=== PATIENT | male | born 1995 | race African-American/Black ===

== ENCOUNTER 2018-07-29 14:55 | Emergency (ER) | payer OTHER ==
[2018-07-29 15:08] VITALS: TEMP 98.2
[2018-07-29] MEDS ORDERED: BUPIVACAINE (PF) 0.75% 10 ML VIAL SQ STA (15:14)
[2018-07-29] MEDS ORDERED: KETOROLAC 60 MG/2 ML VIAL IM STA ×2 (15:15→15:49)
--- NOTE | 2018-07-29 15:17 | ED ---
ENT HPI - General Chief complaint: Dental/Oral Stated complaint: Tooth pain Time Seen by Provider: 07/29/18 15:11 Source: patient, RN notes reviewed Mode of arrival: ambulatory Limitations: no limitations - History of Present Illness Initial comments: 21-year-old male presents emergency Department chief complaint of right lower jaw pain. Patient states has been on off for last week states as worsened last 24 hours. Patient states he is scheduled see a dentist tomorrow secondary to cramping of his teeth from his wisdom teeth. Patient denies any known fever states he's felt hot and cold. Patient states pain got so bad that he vomited. Denies any neck pain or neck stiffness. Patient has an no relief with [id number] medications. - Related Data Allergies Allergy/AdvReac Type Severity Reaction Status Date / Time No Known Allergies Allergy Verified 07/29/18 15:06 Review of Systems ROS Statement: Those systems with pertinent positive or pertinent negative responses have been documented in the HPI. ROS Other: All systems not noted in ROS Statement are negative. Past Medical History Past Medical History: No Reported History History of Any Multi-Drug Resistant Organisms: None Reported Past Surgical History: No Surgical Hx Reported Past Psychological History: No Psychological Hx Reported Smoking Status: Never smoker Past Alcohol Use History: Rare Past Drug Use History: Marijuana General Exam Limitations: no limitations General appearance: alert, in no apparent distress Head exam: Present: atraumatic, normocephalic, normal inspection Eye exam: Present: normal appearance, PERRL, EOMI. Absent: scleral icterus, conjunctival injection, periorbital swelling ENT exam: Present: mucous membranes moist. Absent: normal exam (Dental crowding, impacted molar right lower), normal oropharynx Neck exam: Present: normal inspection. Absent: tenderness, meningismus, lymphadenopathy Respiratory exam: Present: normal lung sounds bilaterally. Absent: respiratory distress, wheezes, rales, rhonchi, stridor Cardiovascular Exam: Present: regular rate, normal rhythm, normal heart sounds. Absent: systolic murmur, diastolic murmur, rubs, gallop, clicks Neurological exam: Present: alert, oriented X3, CN II-XII intact Skin exam: Present: warm, dry, intact, normal color. Absent: rash Course Vital Signs 07/29/18 15:06 Temperature 98.2 F Pulse Rate 77 Respiratory 18 Rate Blood Pressure 110/77 O2 Sat by Pulse 99 Oximetry Procedures - Nerve Block Consent Obtained: verbal consent Local Anesthetic Used: Marcaine 0.5% Amount of anesthesia used: 2 Side: right Intraoral Nerve Block: inferior alveolar Procedure Successful: Yes Complications: none Patient Tolerated Procedure: well, no complications Medical Decision Making - Medical Decision Making 22-year-old male presents emergency Department for dental pain. This pain is related to impacted molar. Patient has a follow-up tomorrow with the dentist. Patient was given inferior alveolar block which has helped. Patient will be discharged without codeine return parameters were discussed. Disposition Clinical Impression: Impacted molar, Toothache Disposition: HOME SELF-CARE Condition: Stable Instructions (If sedation given, give patient instructions): Toothache (ED) Additional Instructions: Please return to the Emergency Department if symptoms worsen or any other concerns. Is patient prescribed a controlled substance at d/c from ED?: No Referrals: None,Stated [Primary Care Provider] - 1-2 days
[2018-07-29] MEDS ORDERED: ACET/COD 300 MG/30 MG STARTER PACK 6 TAB BTL PO STA (16:06)
[2018-07-29 16:58] VITALS: BP 110/76; PULSE 68; RESP 19
== END 2018-07-29 16:10 | disposition home or self-care (01) ==
LOC: EC 14:55
DX: K01.1 Impacted teeth (principal); K08.89 Other specified disorders of teeth and supporting structures
CPT/HCPCS: 99282; 64400; 96372; J1885

== ENCOUNTER 2019-06-04 21:56 | Emergency (ER) | payer OTHER ==
[2019-06-04 22:07] VITALS: BP 128/72; PULSE 73; RESP 16; TEMP 99.1
[2019-06-04] MEDS ORDERED: KETOROLAC 60 MG/2 ML VIAL IM STA (22:15)
[2019-06-04] MEDS ORDERED: DIPH,PERTUS(ACELL)TETVAC-LF 0.5 ML VIAL IM ONE (22:15)
[2019-06-04] MEDS ORDERED: LIDOCAINE 1% INJ 10MG/ML (20 ML MDV) SQ STA (22:16)
--- NOTE | 2019-06-04 22:37 | XR ---
EXAMINATION TYPE: XR hand complete RT DATE OF EXAM: 06/04/2019 COMPARISON: NONE HISTORY: Pain TECHNIQUE: 3 views FINDINGS: There is deformity of the metacarpals with posterior dislocations of the fourth and fifth c arpometacarpal joints. There is no fracture seen. Phalanges appear intact. The radiocarpal joint appe ars intact. IMPRESSION: Posterior dislocations at the fourth and fifth carpometacarpal joints.
--- NOTE | 2019-06-04 23:12 | XR ---
EXAMINATION TYPE: XR hand complete RT DATE OF EXAM: 06/04/2019 COMPARISON: Today HISTORY: Post reduction TECHNIQUE: 3 views FINDINGS: There is anatomic reduction of the carpometacarpal joints. I see no fracture. There is a ca st. Carpal bones are intact. IMPRESSION: Anatomic reduction of the carpometacarpal joints. No fracture seen.
--- NOTE | 2019-06-04 23:27 | ED ---
General Adult HPI - General Chief complaint: Extremity Injury, Upper Stated complaint: Hand injury Time Seen by Provider: 06/04/19 22:09 Source: patient, RN notes reviewed, old records reviewed Mode of arrival: ambulatory Limitations: no limitations - History of Present Illness Initial comments: 23-year-old male patient presents emergency department with right hand injury. Patient reports he was upset and punched a steel door. Complains of pain and swelling in the fourth and fifth metacarpal area of right hand. Denies any other complaints. Denies any other injury. Systemic: Pt denies fatigue, fever/chills, rash. Pt denies weakness, night sweats, weight loss. Neuro: Pt denies headache, visual disturbances, syncope or pre-syncope. HEENT: Pt denies ocular discharge or irritation, otalgia, rhinorrhea, pharyngitis or notable lymphadenopathy. Cardiopulmonary: Pt denies chest pain, SOB, heart palpitations, dyspnea on exertion. Abdominal/GI: Pt denies abdominal pain, n/v/d. : Pt denies dysuria, burning w/ urination, frequency/urgency. Denies new onset urinary or bowel incontinence. MSK: Pt denies myalgia, loss of strength or function in extremities. Neuro: Pt denies new onset weakness, paresthesias. - Related Data Allergies Allergy/AdvReac Type Severity Reaction Status Date / Time No Known Allergies Allergy Verified 06/04/19 22:05 Review of Systems ROS Statement: Those systems with pertinent positive or pertinent negative responses have been documented in the HPI. ROS Other: All systems not noted in ROS Statement are negative. Past Medical History Past Medical History: No Reported History History of Any Multi-Drug Resistant Organisms: None Reported Past Surgical History: No Surgical Hx Reported Past Psychological History: No Psychological Hx Reported Smoking Status: Never smoker Past Alcohol Use History: Rare Past Drug Use History: Marijuana General Exam - General Exam Comments Initial Comments: Constitutional: NAD, AOX3, Pt has pleasant affect. HEENT: NC/AT, trachea midline, neck supple, no lymphadenopathy. Posterior pharynx non erythematous, without exudates. External ears appear normal, without discharge. Mucous membranes moist. Eyes PERRLA, EOM intact. There is no scleral icterus. No pallor noted. Cardiopulmonary: RRR, no murmurs, rubs or gallops, no JVD noted. Lungs CTAB in anterior and posterior sarkar. No peripheral edema. Abdominal exam: Abdomen soft and non-distended. Abdomen non-tender to palpation in all 4 quadrants. Bowel sounds active in LLQ. No hepatosplenomegaly. No ecchymosis Neuro: CN II-XII grossly intact. No nuchal rigidity. No raccon eyes, no franz sign, no hemotympanum. No cervical spinal tenderness. MSK: Swelling and deformity consistent with dislocation of fourth and fifth m etacarpals. Reduction was performed. Full active range of motion hand. Neurovascularly intact. Patient placed in ulnar gutter splint. Neurovascularly intact after splint placement. Small abrasion noted on base of fifth metacarpal. Irrigated, approximated with Steri-Strip. Superficial. No posterior calf tenderness bilaterally, homans sign negative bilaterally. Posterior tibialis and radial pulse +2 bilaterally. Sensation intact in upper and lower extremities. Full active ROM in upper and lower extremities, 5/5 stregnth. Limitations: no limitations Course Vital Signs 06/04/19 22:03 Temperature 99.1 F Pulse Rate 73 Respiratory 16 Rate Blood Pressure 128/72 O2 Sat by Pulse 98 Oximetry Medical Decision Making - Medical Decision Making 23-year-old female patient presents to ED for chief complaint of pain in hand after punching a steel door. Patient vital signs are stable, afebrile. Physical exam displayed: Swelling and deformity consistent with dislocation of fourth and fifth metacarpals. Reduction was performed. Full active range of motion hand. Neurovascularly intact. Patient placed in ulnar gutter splint. Neurovascularly intact after splint placement. Small abrasion noted on base of fifth metacarpal. Irrigated, approximated with Steri-Strip. Superficial. Plain film of hand displayed posterior dislocation of the fourth and fifth metacarpal joint. No fracture seen. Repeat films displayed anatomic reduction. No fracture seen. Patient was discharged with outpatient orthopedic follow-up tomorrow. Pt tetanus updated. Return to ER if condition worsens. Case discussed with Dr. Tucker. Disposition Clinical Impression: Dislocation of metacarpal joint Disposition: HOME SELF-CARE Condition: Stable Instructions (If sedation given, give patient instructions): Hand Sprain (ED) Additional Instructions: Continue to wear splint. Follow up with orthopedic consult tomorrow. Return to ER if condition worsens. Follow-up with primary care provider in 1-2 days. Is patient prescribed a controlled substance at d/c from ED?: No Referrals: None,Stated [Primary Care Provider] - 1-2 days Jennifer Lara, [Doctor of Osteopathic Medicine] - 1-2 days
== END 2019-06-04 23:53 | disposition home or self-care (01) ==
LOC: EC 21:56
DX: S63.264A Dislocation of metacarpophalangeal joint of right ring finger, initial encounter (principal); S63.266A Dislocation of metacarpophalangeal joint of right little finger, initial encounter; Z23 Encounter for immunization; W22.09XA Striking against other stationary object, initial encounter
CPT/HCPCS: 73130; 90715; 99284; 26670 ×2; 96372; 90471; J2001; J1885

== ENCOUNTER 2019-07-13 21:25 | Emergency (ER) | payer OTHER ==
[2019-07-13 22:08] VITALS: BP 110/73; PULSE 76; RESP 20; TEMP 98.3
[2019-07-13] MEDS ORDERED: IBUPROFEN 600 MG TAB PO STA (23:03)
[2019-07-13] MEDS ORDERED: PENICILLIN VK 500MG STARTER 4 TAB BTL PO STA (23:03)
[2019-07-13] MEDS ORDERED: ACET/COD 300 MG/30 MG STARTER PACK 6 TAB BTL PO STA (23:03)
[2019-07-13] MEDS ORDERED: IBUPROFEN 600 MG STARTER PACK 4 TAB BTL PO STA (23:03)
[2019-07-13] MEDS ORDERED: Acetaminophen-Codeine 300-30mg TAB PO STA (23:03)
--- NOTE | 2019-07-13 23:03 | ED ---
ENT HPI - General Chief complaint: Dental/Oral Stated complaint: Dental Pain Time Seen by Provider: 07/13/19 22:17 Source: patient, RN notes reviewed, old records reviewed Mode of arrival: ambulatory Limitations: no limitations - History of Present Illness Initial comments: This is a 23-year-old male the ER with severe left upper molar pain. Patient heck s severe pain and tenderness especially with laying down. No fevers no swelling of the face history of dental disease no history of dental abscess no significant history of dental caries, no injury or trauma noted. No significant medical history patient takes no medications MD complaint: tooth pain (Left upper molar pain) -: days(s) Location: tooth # (Left Upper rear Molar) Severity: moderate Severity scale (1-10): 7 Quality: stabbing, aching Consistency: constant Improves with: none Worsens with: none Context-Epistaxis: history of similar - Related Data Allergies Allergy/AdvReac Type Severity Reaction Status Date / Time No Known Allergies Allergy Verified 07/13/19 22:08 Review of Systems ROS Statement: Those systems with pertinent positive or pertinent negative responses have been documented in the HPI. ROS Other: All systems not noted in ROS Statement are negative. Past Medical History Past Medical History: No Reported History History of Any Multi-Drug Resistant Organisms: None Reported Past Surgical History: No Surgical Hx Reported Past Psychological History: No Psychological Hx Reported Smoking Status: Never smoker Past Alcohol Use History: Rare Past Drug Use History: Marijuana General Exam - General Exam Comments Initial Comments: No abscess noted Limitations: no limitations General appearance: alert, in no apparent distress Head exam: Present: atraumatic, normocephalic, normal inspection Eye exam: Present: normal appearance, PERRL, EOMI. Absent: scleral icterus, conjunctival injection, periorbital swelling ENT exam: Present: normal exam, mucous membranes moist Neck exam: Present: normal inspection. Absent: tenderness, meningismus, lymphadenopathy Respiratory exam: Present: normal lung sounds bilaterally. Absent: respiratory distress, wheezes, rales, rhonchi, stridor Cardiovascular Exam: Present: regular rate, normal rhythm, normal heart sounds. Absent: systolic murmur, diastolic murmur, rubs, gallop, clicks GI/Abdominal exam: Present: soft, normal bowel sounds. Absent: distended, tenderness, guarding, rebound, rigid Extremities exam: Present: normal inspection, full ROM, normal capillary refill. Absent: tenderness, pedal edema, joint swelling, calf tenderness Back exam: Present: normal inspection Neurological exam: Present: alert, oriented X3, CN II-XII intact Psychiatric exam: Present: normal affect, normal mood Skin exam: Present: warm, dry, intact, normal color. Absent: rash Course Vital Signs 07/13/19 22:06 Temperature 98.3 F Pulse Rate 76 Respiratory 20 Rate Blood Pressure 110/73 O2 Sat by Pulse 100 Oximetry - Reevaluation(s) Reevaluation #1: 07/13/19 23:02 Medical records reviewed Reevaluation #2: 07/13/19 23:02 Patient's pain is improved here in the ER Medical Decision Making - Medical Decision Making 3 male DF for evaluation patient is a for evaluation regarding tooth pain left upper rear molar tooth pain. Pain is well-controlled patient be placed on antibiotics and can be discharged home Disposition Clinical Impression: Dental caries, Dental abscess Disposition: HOME SELF-CARE Condition: Good Instructions (If sedation given, give patient instructions): Dental Abscess (ED), Toothache (ED) Is patient prescribed a controlled substance at d/c from ED?: No Referrals: None,Stated [Primary Care Provider] - 1-2 days
[2019-07-13] MEDS ORDERED: PENICILLIN V POTASSIUM 250 MG TAB PO ONE (23:15)
== END 2019-07-13 23:49 | disposition home or self-care (01) ==
LOC: EC 21:25
DX: K04.7 Periapical abscess without sinus (principal); K02.9 Dental caries, unspecified
CPT/HCPCS: 99283

== ENCOUNTER 2022-05-16 13:14 | Emergency (ER) | payer OTHER ==
[2022-05-16 13:21] VITALS: TEMP 98.2
[2022-05-16] MEDS ORDERED: diphenhydrAMINE 50 MG/ML 1 ML VIAL IM STA (13:33)
[2022-05-16] MEDS ORDERED: KETOROLAC 15 MG/ML 1 ML VIAL IM STA (13:33)
[2022-05-16] MEDS ORDERED: METOCLOPRAMIDE 5 MG/ML 2 ML VIAL IM STA (13:33)
--- NOTE | 2022-05-16 13:37 | ED ---
General Adult HPI - General Chief complaint: Headache Stated complaint: headache Time Seen by Provider: 05/16/22 13:24 Source: patient, RN notes reviewed Mode of arrival: ambulatory Limitations: no limitations - History of Present Illness Initial comments: Patient is a pleasant 26-year-old male presenting to the emergency department with concerns for headache. Onset of symptoms was close to week ago. Headache has slowly progressively worsened. No history of chronic headaches. Patient does have some nausea and did vomit a little bit at one point. No photophobia. Headache is frontal, more so on the right. No visual changes. No weakness. No fever. Headache was not sudden onset. - Related Data Previous Rx's Medication Instructions Recorded Naproxen [Naprosyn] 500 mg PO Q12HR #30 tab 07/13/19 Penicillin V Potassium [Pen Vee K] 500 mg PO QID #40 tablet 07/13/19 Allergies Allergy/AdvReac Type Severity Reaction Status Date / Time No Known Allergies Allergy Verified 05/16/22 13:21 Review of Systems ROS Statement: Those systems with pertinent positive or pertinent negative responses have been documented in the HPI. ROS Other: All systems not noted in ROS Statement are negative. Constitutional: Denies: fever Eyes: Denies: eye pain ENT: Denies: ear pain Respiratory: Denies: cough Cardiovascular: Denies: chest pain Endocrine: Denies: fatigue Gastrointestinal: Reports: nausea Genitourinary: Denies: dysuria Musculoskeletal: Denies: back pain Skin: Denies: rash Neurological: Reports: headache. Denies: weakness, confusion Past Medical History Past Medical History: No Reported History History of Any Multi-Drug Resistant Organisms: None Reported Past Surgical History: No Surgical Hx Reported Past Psychological History: No Psychological Hx Reported Smoking Status: Vaper Past Alcohol Use History: Rare Past Drug Use History: Marijuana General Exam Limitations: no limitations General appearance: alert, in no apparent distress Head exam: Present: atraumatic Eye exam: Present: normal appearance, PERRL, EOMI ENT exam: Present: normal oropharynx Neck exam: Present: normal inspection Respiratory exam: Present: normal lung sounds bilaterally Cardiovascular Exam: Present: regular rate, normal rhythm GI/Abdominal exam: Present: soft. Absent: tenderness Neurological exam: Present: alert, CN II-XII intact. Absent: motor sensory deficit Expanded Neurological exam: Present: protecting the airway Speech: Present: fluid speech Cranial nerves: EOM's Intact: Normal, Facial Sensation: Normal Sensory exam: Upper Extremity Light Touch: Normal, Lower Extremity Light Touch: Normal Motor strength exam: RUE: 5, LUE: 5, RLE: 5, LLE: 5 Eye Response: (4) open spontaneously Motor Response: (6) obeys commands Verbal Response: (5) oriented Psychiatric exam: Present: normal affect, normal mood Skin exam: Present: normal color Course Vital Signs 05/16/22 13:19 Temperature 98.2 F Pulse Rate 74 Respiratory 20 Rate Blood Pressure 126/74 O2 Sat by Pulse 96 Oximetry Disposition Clinical Impression: Headache Disposition: HOME SELF-CARE Condition: Stable Instructions (If sedation given, give patient instructions): Acute Headache (ED) Additional Instructions: Please do follow-up with primary care physician in the next couple days for recheck. Return for increased pain, fever, weakness, vomiting, worsening or changing symptoms or other concerns. Is patient prescribed a controlled substance at d/c from ED?: No Referrals: Jett Jarrell MD [STAFF PHYSICIAN] - 1-2 days Time of Disposition: 13:36
[2022-05-16 14:41] VITALS: BP 129/70; PULSE 60; RESP 18
== END 2022-05-16 15:06 | disposition home or self-care (01) ==
LOC: EC 13:14
DX: R51.9 Headache, unspecified (principal); F17.290 Nicotine dependence, other tobacco product, uncomplicated; F12.90 Cannabis use, unspecified, uncomplicated
CPT/HCPCS: 99283; 96372 ×3; J1200; J2765; J1885